=== PATIENT | male | born 1985 | race Caucasian/White ===

== ENCOUNTER 2022-12-09 15:43 | Emergency (ER) | payer SELFPAY ==
[2022-12-09] VITALS (7 sets, daily range): BP systolic 109–139; BP diastolic 65–75; PULSE 47–57; RESP 18; TEMP 98–98.5; O2SAT 95–96
[~2022-12-09] VITALS: Ht 165.1 cm; Wt 59.0 kg
[2022-12-09 16:31] LABS: BASOPHIL # 0.1 10^3/uL (0.0-0.1); BASOPHIL % 1.1 % (0.0-0.2); EOSINOPHIL # 0.1 10^3/uL (0.0-0.2); EOSINOPHIL % 1.4 % (0.0-5.0); HEMATOCRIT(ML) 39.2 % (37.0-53.0); HEMOGLOBIN 12.2 g/dL (13.9-16.3); LYMPHOCYTES # 3.07 10^3/uL1 (1.0-4.8); LYMPHOCYTES % 36.6 % (24.0-44.0); MEAN CORP HGB 29.6 pg (26-34); MEAN CORP HGB CONCENTRATION 31.1 g/dL (33-36.5); MEAN CORP VOLUME 95.1 fL (78-100); MONOCYTES # 0.7 10^3/uL (0.3-0.8); MONOCYTES % 8.7 % (5.0-12.0); NEUTROPHIL # 4.4 10^3/uL (1.8-7.7); NEUTROPHILS % 52.2 % (41.0-85.0); PLATELET COUNT 306 10^3/uL (150-400); RED BLOOD CELL 4.12 10^6/uL (4.50-5.90); RED CELL DISTRIBUTION WIDTH 13.1 % (11.5-14.5); WHITE BLOOD CELL 8.4 10^3/uL (4.5-11.0)
[2022-12-09 16:33] LABS: +ADD MANUAL DIFF(NO CHRG) NO
[2022-12-09 16:53] LABS: TROPONIN I HIGH SENSITIVITY 10 ng/L (0-75)
[2022-12-09 17:07] LABS: ACETAMINOPHEN(ML) < 2 ug/mL (10-30); ALANINE AMINOTRANSFERASE(ML) 16 U/L (12-78); ALBUMIN(ML) 3.4 g/dL (3.4-5.0); ALBUMIN/GLOBULIN RATIO 1.133; ALKALINE PHOSPHATASE 51 U/L (50-136); ANION GAP 10.5; ASPARTATE AMINO TRANSFERASE 17 U/L (0-35); CALCIUM 7.8 mg/dL (8.4-10.5); CARBON DIOXIDE 26.8 mmol/L (20.0-32); CREATINE KINASE 115 U/L (39-308); CREATININE SERUM 0.81 mg/dL (0.59-1.40); EST GFR, NON-AA 106.6 (>/=60); GLUCOSE 65 mg/dL (74-106); POTASSIUM 4.3 mmol/L (3.6-5.2); SALICYLATE(ML) 6.2 mg/dL (2.8-20.0); SODIUM 143 mmol/L (132-145)
[2022-12-09 17:20] LABS: BILIRUBIN,URINE 1+ (NEGATIVE); LEUKOCYTE ESTERASE ,URINE NEGATIVE (NEGATIVE); NITRATE,URINE NEGATIVE (NEGATIVE)
[2022-12-09 17:22] LABS: APPEARANCE,URINE CLEAR; UA COLOR YELLOW
[2022-12-09 17:28] LABS: UAMPH METHAMP(SCRN) NEGATIVE (co1000ng/mL); UR MDMA (ECSTASY) SCRN NEGATIVE (c/o300ng/mL); UR METHADONE SCRN NEGATIVE (c/o300ng/mL); UR OPIATE SCRN NEGATIVE (c/o300ng/mL); UR PHENCYCLIDINE (PCP) SCRN NEGATIVE (c/o 25ng/mL); UR TETRAHYDROCANNABINOL SCRN NEGATIVE (c/o 50ng/mL)
== END 2022-12-09 21:17 | disposition critical access hospital (66) ==
LOC: ER 15:43
DX: T39.1X1A Poisoning by 4-Aminophenol derivatives, accidental (unintentional), initial encounter (principal); I49.1 Atrial premature depolarization; F41.9 Anxiety disorder, unspecified; Z20.822 Contact with and (suspected) exposure to COVID-19; Y92.89 Other specified places as the place of occurrence of the external cause
CPT/HCPCS: 36415; 80053; 80299; 80307; 81001; 82077; 82550; 82553; 82948; 84484; 84703; 85025; 87086; 87426; 93005; 99285